=== PATIENT | female | born 1995 | race Caucasian/White ===

== ENCOUNTER 2024-12-30 01:07 | Emergency (ER) | payer OTHER ==
[~2024-12-30] VITALS: Ht 162.6 cm; Wt 72.7 kg
[~2024-12-30 01:07] MED LIST: NOCURR
[2024-12-30 01:13] VITALS: TEMP 98.4
[2024-12-30 02:49] VITALS: BP 118/67; PULSE 89; RESP 18; O2SAT 97
== END 2024-12-30 03:21 | disposition home or self-care (01) ==
LOC: EMS 01:07
DX: S62.521A Displaced fracture of distal phalanx of right thumb, initial encounter for closed fracture (principal); Y04.0XXA Assault by unarmed brawl or fight, initial encounter; Y93.89 Activity, other specified; Y92.59 Other trade areas as the place of occurrence of the external cause; Y99.8 Other external cause status
CPT/HCPCS: 99283

== ENCOUNTER 2025-02-25 16:54 | Emergency (ER) | payer OTHER ==
[~2025-02-25] VITALS: Ht 162.6 cm; Wt 75.0 kg
[2025-02-25 17:04] VITALS: BP 122/70; PULSE 70; RESP 18; TEMP 97.5; O2SAT 95
[2025-02-25 17:27] LABS: COVID AG,FIA SOURCE NASAL SWAB
[2025-02-25 17:31] LABS: PLATELET COUNT (AUTO) 358 K/uL (150-450); RED BLOOD CELL COUNT(AUTO) 4.76 MIL/uL (4.00-5.20); RED CELL DISTRIBUTION WIDTH 17.5 % (11.5-14.5); WHITE BLOOD COUNT (AUTO) 9.1 K/uL (4.5-11.0)
[2025-02-25] MEDS: ACETAMINOPHEN 500 MG TABLET PO ONE (17:33)
[2025-02-25] MEDS: ONDANSETRON HCL 4 MG/2 ML VIAL IVP ONE (17:33)
[2025-02-25] MEDS: SODIUM CHLORIDE 0.9% 1,000 ML IV ONE (17:33)
[2025-02-25 17:40] LABS: CALCIUM, TOTAL 9.0 mg/dL (8.8-10.5); CREATININE 0.58 mg/dL (0.60-1.30); GLOMERULAR FILTR. RATE CALC > 60 mL/min (>60); GLUCOSE,RANDOM 87 mg/dL (70-110); SODIUM SERUM 137 mmol/L (136-145); UREA NITROGEN, BLOOD 6 mg/dL (7-18)
[2025-02-25 17:46] LABS: ASPARTATE AMINOTRANSFERASE 15.0 U/L (15-37); TOTAL PROTEIN, SERUM 7.7 g/dL (6.4-8.2)
[2025-02-25 17:48] LABS: TROPONIN I-HIGH SENSITIVITY Less Than 4 ng/L (<51)
[2025-02-25 17:55] LABS: SARS-COV2 (COVID) ANTIGEN,FIA Negative (Negative)
[2025-02-25 17:56] LABS: INFLUENZA TYPE A NEGATIVE FOR TYPE A (NEGATIVE); INFLUENZA TYPE B NEGATIVE FOR TYPE B (NEGATIVE)
[2025-02-25 18:00] LABS: RBC MORPHOLOGY COMMENT ABNORMAL RBC MORPH
[2025-02-25 18:31] LABS: APPEARANCE,URINE CLEAR (CLEAR); GLUCOSE, URINE (UA) NEGATIVE (NEGATIVE); LEUKOCYTE ESTERASE ,URINE NEGATIVE (NEGATIVE); NITRATE,URINE NEGATIVE (NEGATIVE); OCCULT BLOOD,URINE NEGATIVE (NEGATIVE); SPECIFIC GRAVITIY, URINE 1.004 (1.003-1.030)
[2025-02-25] MEDS ORDERED: BENZ-227 PO (19:33)
[2025-02-25] MEDS ORDERED: ONDA-104 PO (19:33)
== END 2025-02-25 19:42 | disposition home or self-care (01) ==
LOC: EMS 17:07
DX: R11.0 Nausea (principal); R19.7 Diarrhea, unspecified; R42 Dizziness and giddiness; Z20.822 Contact with and (suspected) exposure to COVID-19
CPT/HCPCS: 99285; 96374; 71045; 96361; 87426; 80048; 80076; 81003; 83690; 83735; 84484; 84703; 85025; 87804; 36415; 93005; J2405; J7030

== ENCOUNTER 2025-06-03 12:57 | Emergency (ER) | payer OTHER ==
[~2025-06-03] VITALS: Ht 157.5 cm; Wt 75.0 kg
[~2025-06-03 12:57] MED LIST changes: +BENZ-227 PO; -NOCURR; +ONDA-104 PO
[2025-06-03 13:04] VITALS: TEMP 97.7
[2025-06-03 14:17] LABS: PLATELET COUNT (AUTO) 318 K/uL (150-450); RED BLOOD CELL COUNT(AUTO) 4.61 MIL/uL (4.00-5.20); RED CELL DISTRIBUTION WIDTH 18.2 % (11.5-14.5); WHITE BLOOD COUNT (AUTO) 8.8 K/uL (4.5-11.0)
[2025-06-03 14:25] LABS: CALCIUM, TOTAL 8.7 mg/dL (8.8-10.5); CREATININE 0.45 mg/dL (0.60-1.30); GLOMERULAR FILTR. RATE CALC > 60 mL/min (>60); GLUCOSE,RANDOM 84 mg/dL (70-110); SODIUM SERUM 140 mmol/L (136-145); UREA NITROGEN, BLOOD 7 mg/dL (7-18)
[2025-06-03] MEDS: FAMOTIDINE 20 MG/2 ML VIAL IVP ONE (14:26)
[2025-06-03] MEDS: METOCLOPRAMIDE HCL 5 MG/ML 2 ML VIAL IVP ONE (14:27)
[2025-06-03 14:28] LABS: RBC MORPHOLOGY COMMENT ABNORMAL RBC MORPH
[2025-06-03] MEDS: SODIUM CHLORIDE 0.9% 1,000 ML IV ONE (14:28)
[2025-06-03] MEDS: ACETAMINOPHEN 325 MG TABLET PO ONE (15:26)
[2025-06-03 16:24] VITALS: BP 121/78; PULSE 78; RESP 16; O2SAT 98
== END 2025-06-03 16:26 | disposition home or self-care (01) ==
LOC: EMS 12:57
DX: K52.9 Noninfective gastroenteritis and colitis, unspecified (principal); K29.20 Alcoholic gastritis without bleeding; Z79.899 Other long term (current) drug therapy
CPT/HCPCS: 99284; 96374; 96361; 96375; 80048; 84703; 85025; 36415; J3490; J2765; J7030